=== PATIENT | male | born 1970 | race Caucasian/White ===

== ENCOUNTER 2016-11-24 19:13 | Emergency (ER) | payer SELFPAY ==
[2016-11-24] MEDS ORDERED: AMOXicillin 250 MG CAP ONE (19:29)
[2016-11-24] MEDS ORDERED: HYDROcodone/Acetaminophen 10/325 mg Tablet ONE (19:29)
== END 2016-11-24 19:41 | disposition home or self-care (01) ==
LOC: BURERS 19:13
DX: K02.9 Dental caries, unspecified (principal); F17.210 Nicotine dependence, cigarettes, uncomplicated
CPT/HCPCS: 99282